=== PATIENT | female | born 1955 | race Two or more races ===

== ENCOUNTER 2023-09-26 09:56 | Outpatient (CLI) | payer OTHER | END 2023-09-26 10:02 | disposition home or self-care (01) | LOC: MRI 09:56 | DX: N95.0 Postmenopausal bleeding (principal); D27.1 Benign neoplasm of left ovary | CPT/HCPCS: 72197; Q9965 ==

== ENCOUNTER 2025-02-13 10:43 | Outpatient (CLI) | payer OTHER | END 2025-02-13 10:56 | disposition home or self-care (01) | LOC: MRI 10:43 | PROVIDERS: ATTEND General Practice | DX: R41.841 Cognitive communication deficit (principal) | CPT/HCPCS: 70551 ==